=== PATIENT | female | born 1985 | race Caucasian/White ===

== ENCOUNTER 2017-05-23 11:51 | Emergency (ER) | payer BC, OTHER, SELFPAY | END 2017-05-23 12:28 | disposition home or self-care (01) | LOC: SCSER 11:51 | DX: L03.211 Cellulitis of face (principal); F41.9 Anxiety disorder, unspecified; F32.9 Major depressive disorder, single episode, unspecified; F17.210 Nicotine dependence, cigarettes, uncomplicated; Z79.899 Other long term (current) drug therapy; Z71.6 Tobacco abuse counseling | CPT/HCPCS: 99406 ==

== ENCOUNTER 2017-09-17 18:46 | Emergency (ER) | payer SELFPAY ==
[2017-09-17 19:34] LABS: #Basophils 0.1 thou/uL (0.0-0.2); #Eosinphils 0.1 thou/uL (0.0-0.7); #Lymphocytes 2.1 thou/uL (1.20-3.40); #Monocytes 0.6 thou/uL (0.11-0.59); #Neutrophils 4.8 thou/uL (1.40-6.50); %Basophils 1.8 % (0.0-1.0); %Monocytes 7.3 % (0.0-10.0); Hemoglobin 11.3 g/dL (12.0-16.0); Mean Corpuscular HGB CONC 35.1 g/dL (32.0-36.0); Mean Corpuscular Hemoglobin 31.6 pg (27.0-31.0); Mean Corpuscular Volume 90.1 fl (81.0-99.0); Mean Platelet Volume 7.9 fL (7.4-10.4); Platelet Count 222 thou/uL (130-400); RBC Distribution Width 11.8 % (11.5-14.5); Red Blood Cell (RBC) Count 3.59 mill/uL (4.20-5.40); White Blood Cell (WBC) Count 7.6 thou/uL (4.8-10.8)
[2017-09-17 19:41] LABS: Bilirubin Small (Negative); Blood, Urine Trace (Negative); Clarity CLEAR (Clear); Glucose, Urine (Dipstick) Negative (Negative); Leukocyte Negative (Negative); Nitrite Negative (Negative); Protein, Urine (Dipstick) Trace mg/dL (Neg-Trace); Specific Gravity, Urine 1.028 (1.002-1.036)
[2017-09-17 19:43] LABS: Bacteria/HPF Rare-Few HPF (None Seen); Hyaline Casts/LPF 0-3 HYALINE CAST LPF (0-3 Hyaline); Pathc Cast-AUWi Flag 0.58 (0-2.49); RBC/HPF 0-3 HPF (0-3); WBC/HPF 0-3 HPF (0-3)
--- NOTE | 2017-09-17 19:53 | ULT ---
OB ULTRASOUND: 09/17/17 COMPARISON: None. HISTORY: female with an episode of vaginal bleeding. Patient denies bleeding at this time. TECHNIQUE: Multiplanar kline scale and color doppler images were obtained in a transabdominal ultrasound. FINDINGS: A single live intrauterine is seen with heart rate of 162 beats per minute. A crown-rump le ngth is seen with length of 3.85 cm. This estimates gestational age at 10 weeks, 5 days. Neither ovary was visualized. No free fluid is seen in the pelvis. IMPRESSION: Single live intrauterine with estimated age of 10 weeks, 5 days. POS: [facility]
== END 2017-09-17 20:23 | disposition home or self-care (01) ==
LOC: ERS 18:46
DX: O20.0 Threatened abortion (principal); O99.341 Other mental disorders complicating pregnancy, first trimester; F41.9 Anxiety disorder, unspecified; F32.9 Major depressive disorder, single episode, unspecified; O99.331 Smoking (tobacco) complicating pregnancy, first trimester; Z3A.11 11 weeks gestation of pregnancy
CPT/HCPCS: 76815; 81003; 81015; 84702; 85025; 86900; 86901

== ENCOUNTER 2019-04-12 19:08 | Emergency (ER) | payer OTHER, SELFPAY ==
[2019-04-12 19:36] LABS: Bilirubin Negative (Negative); Blood, Urine Negative (Negative); Clarity Clear (Clear); Glucose, Urine (Dipstick) 50 mg/dL (Negative); Leukocyte Negative Leu/uL (Negative); Nitrite Negative (Negative); Protein, Urine (Dipstick) 10 mg/dL (Neg-Trace); Urobilinogen Normal mg/dL (Less than 2)
[2019-04-12 19:39] LABS: Pregnancy Test - Urine (BHCG) Negative (Negative); Pregu Control Background? CLEAR/WHITE (CLR/WHITE); Pregu Control Bar Appear? YES (CONTROL BAR); Specific Gravity 1.035 (1.002-1.036)
[2019-04-12] MEDS ORDERED: Ketorolac Tromethamine 30 MG/ML VIAL ONE (20:05)
[2019-04-12 20:17] LABS: #Eosinphils 0.2 thou/uL (0.0-0.7); #Lymphocytes 2.2 thou/uL (1.20-3.40); #Monocytes 0.6 thou/uL (0.11-0.59); #Neutrophils 4.9 thou/uL (1.40-6.50); %Basophils 0.4 % (0.0-1.0); %Eosinophils 1.9 % (0.0-10.0); %Monocytes 7.5 % (0.0-10.0); %Neutrophils 62.1 % (42.0-75.0); Hemoglobin 11.1 g/dL (12.0-16.0); Mean Corpuscular HGB CONC 33.9 g/dL (32.0-36.0); Mean Corpuscular Hemoglobin 27.4 pg (27.0-31.0); Mean Platelet Volume 8.1 fL (7.4-10.4); Platelet Count 266 thou/uL (130-400); RBC Distribution Width 15.7 % (11.5-14.5); Red Blood Cell (RBC) Count 4.05 mill/uL (4.20-5.40); White Blood Cell (WBC) Count 7.9 thou/uL (4.8-10.8)
[2019-04-12 20:29] LABS: ALT (SGPT) Less than 7 U/L (8-55); AST (SGOT) 14 U/L (5-34); Albumin 4.1 g/dL (3.5-5.0); Alkaline Phosphatase 64 U/L (40-110); Anion Gap 12 mmol/L (10-20); BUN (Urea Nitrogen) 16 mg/dL (7.0-18.7); Bilirubin, Total 0.5 mg/dL (0.2-1.2); Calc. Creatinine Clearance 0 mL/min (70-130); Calcium 8.8 mg/dL (7.8-10.44); Carbon Dioxide 23 mmol/L (22-29); Chloride 107 mmol/L (98-107); Estimated GFR-MDRD Greater than 90; Globulin 2.5 g/dL (2.4-3.5); Glucose 113 mg/dL (70-105); Lipase 41 U/L (8-78); Potassium 3.6 mmol/L (3.5-5.1); Protein, Total 6.6 g/dL (6.0-8.3); Sodium 138 mmol/L (136-145)
== END 2019-04-12 21:33 | disposition home or self-care (01) ==
LOC: ERS 19:08
DX: K04.7 Periapical abscess without sinus (principal); R10.9 Unspecified abdominal pain; F41.9 Anxiety disorder, unspecified; F31.9 Bipolar disorder, unspecified; F17.210 Nicotine dependence, cigarettes, uncomplicated
CPT/HCPCS: 36415; 80053; 81003; 81025; 83690; 85025; 96361; 96374; J1885

== ENCOUNTER 2024-12-18 14:32 | Emergency (ER) | payer OTHER ==
[2024-12-18] MEDS ORDERED: Fluorescein Opthalmic Strip ONE (15:34)
[2024-12-18] MEDS ORDERED: Proparacaine 0.5% Opth 15 ML BOT ONE (15:35)
== END 2024-12-18 16:25 | disposition home or self-care (01) ==
LOC: ERS 14:32
DX: S05.02XA Injury of conjunctiva and corneal abrasion without foreign body, left eye, initial encounter (principal); Z87.891 Personal history of nicotine dependence; X58.XXXA Exposure to other specified factors, initial encounter